=== PATIENT | female | born 2000 | race Caucasian/White ===

== ENCOUNTER 2021-11-06 07:39 | Inpatient (IN) ==
[2021-11-06] MEDS ORDERED: Metoclopramide 10 MG/2 ML VIAL IVP PRN (07:59)
[2021-11-06] MEDS ORDERED: *HR* Nalbuphine 10 MG/ML AMPUL IV PRN (07:59)
[2021-11-06] MEDS ORDERED: Famotidine 20 MG/2 ML VIAL IVP PRN (07:59)
[2021-11-06] MEDS ORDERED: Ondansetron 4 MG/2 ML VIAL IVP PRN (07:59)
[2021-11-06] MEDS ORDERED: Naloxone 0.4 MG/ML INJ IVP PRN (07:59)
[2021-11-06] MEDS ORDERED: Oxytocin 30 UNIT/503 ML BAG IVC SCH (08:00)
[2021-11-06] MEDS: Ringers Solution, Lactated 1,000 ML IVC SCH ×3 (09:18→17:53)
[2021-11-06 09:42] LABS: Basophils % 0.3 %; Eosinophils # 0.1 K/mcL (0.0-0.6); Eosinophils % 0.6 %; Hematocrit 35.3 % (35.3-44.9); Hemoglobin 11.5 g/dL (11.5-15.4); Immature Granulocytes % 0.8 % (0-4); Lymphocytes # 1.4 K/mcL (0.6-4.6); Lymphocytes % 15.7 %; Mean Corpuscular HGB Conc 32.6 g/dL (31.6-35.5); Mean Corpuscular Volume 86.1 fL (83.0-100.0); Mean Platelet Volume 9.9 fL (9.4-12.4); Monocytes # 0.6 K/mcL (0.0-1.3); Monocytes % 7.3 %; Neutrophils # 6.5 K/mcL (1.6-8.9); Platelet Count 238 K/mcL (140-400); Red Cell Distribution Width 13.8 % (11.5-14.5); Segmented Neutrophils % 75.3 %; White Blood Count 8.6 K/mcL (4.3-11.1)
[2021-11-06 11:06] LABS: Amphetamine Screen,Urine Negative ng/mL (Cutoff=1000); Barbiturate Screen,Urine Negative ng/mL (Cutoff=200); Benzodiazepines Screen,Urine Negative ng/mL (Cutoff=200); Cannabinoid Screen,Urine Negative ng/mL (Cutoff = 50); Cocaine Screen,Urine Negative ng/mL (Cutoff= 300); Opiate Screen,Urine Negative ng/mL (Cutoff=300); Phencyclidine Screen,Urine Negative ng/mL (Cutoff=25)
[2021-11-06 11:12] LABS: Creatinine,Urine 186 mg/dL
[2021-11-06 11:14] LABS: Alanine Aminotransferase 10 Units/L (7-52); Aspartate Amino Transferase 17 Units/L (13-39); BUN/Creatinine Ratio 10 (6-26); Blood Urea Nitrogen 6 mg/dL (6-20); Lactate Dehydrogenase 179 Units/L (140-271); eGFR For African Americans > 60 (> 60); eGFR For Non-African Americans > 60 (> 60)
[2021-11-06] MEDS ORDERED: EPHEDrine 50 MG/ML VIAL IVP PRN (12:42)
[2021-11-06] MEDS: Epidural Premix (fent/bupiv) 110 ML EP SCH ×2 (14:24→20:12)
[2021-11-06] MEDS ORDERED: Famotidine 20 MG/2 ML VIAL IVP ONE (16:38)
[2021-11-06] MEDS ORDERED: Oxytocin 30 UNIT/503 ML BAG IVC ONE (21:45)
[2021-11-06] MEDS ORDERED: Tranexamic Acid 1,000 MG/100ML 1,000 MG/100 ML PIGGYBACK IVPB ONE ×2 (22:18→23:45)
[2021-11-06] MEDS ORDERED: miSOPROStoL 100 MCG TABLET RC STA (23:43)
[2021-11-06] MEDS ORDERED: *HR* Oxytocin 10 UNIT/ML VIAL IVC ONE (23:45)
[2021-11-07] MEDS ORDERED: Diphenoxylate/Atropine 1 TAB TABLET PO STA (00:01)
[2021-11-07] MEDS ORDERED: Lanolin 7 G OINT...G. TP PRN (00:24)
[2021-11-07] MEDS ORDERED: Ondansetron ODT 4 MG TAB.RAPDIS SL PRN (00:24)
[2021-11-07] MEDS ORDERED: Rho Immune Globulin 1,500 UNIT SYRINGE IM PRN (00:24)
[2021-11-07] MEDS ORDERED: Benzocaine/Menthol 56 GM AEROSOL SPRAY TP PRN (00:24)
[2021-11-07] MEDS ORDERED: Oxytocin 30 UNIT/503 ML BAG IVC SCH (00:24)
[2021-11-07] MEDS: Ibuprofen 600 MG TABLET PO SCH ×4 (00:55→18:56)
[2021-11-07] MEDS: Acetaminophen 325 MG TABLET PO SCH ×3 (00:55→18:04)
[2021-11-07 06:14] LABS: Basophils % 0.2 %; Hematocrit 24.8 % (35.3-44.9); Immature Granulocytes % 0.7 % (0-4); Lymphocytes # 1.1 K/mcL (0.6-4.6); Lymphocytes % 6.9 %; Mean Corpuscular HGB Conc 33.1 g/dL (31.6-35.5); Mean Corpuscular Volume 87.6 fL (83.0-100.0); Mean Platelet Volume 10.1 fL (9.4-12.4); Monocytes % 5.9 %; Neutrophils # 14.2 K/mcL (1.6-8.9); Platelet Count 209 K/mcL (140-400); Red Blood Count 2.83 M/mcL (3.82-4.97); Red Cell Distribution Width 13.9 % (11.5-14.5); Segmented Neutrophils % 86.3 %
[2021-11-07 06:15] LABS: Hemoglobin 8.2 g/dL (11.5-15.4); White Blood Count 16.4 K/mcL (4.3-11.1)
[2021-11-07] MEDS ORDERED: Sodium Ferric Gluconat/Sucrose 125 MG in 0.9 % Sodium Chloride 100 ML IVPB ONE (08:45)
[2021-11-07] MEDS ORDERED: Prenatal Vit/FA 1 EACH TABLET PO SCH (09:00)
[2021-11-07 18:16] VITALS: BP 114/77; PULSE 92; TEMP 97.5; O2SAT 99
== END 2021-11-07 22:40 | disposition home or self-care (01) | DRG 806 ==
LOC: 1NENULAB 07:39 → 1NENUOBS 11-07 01:09
PROVIDERS: ADMIT Obstetrics & Gynecology; ATTEND Obstetrics & Gynecology